=== PATIENT | male | born 1945 ===

== ENCOUNTER 2017-11-27 11:40 | Outpatient (CLI) | payer OTHER ==
[~2017-11-27] VITALS: Ht 167.6 cm; Wt 77.1 kg
== END 2017-11-27 12:00 | disposition home or self-care (01) ==
LOC: OFIC 805 11:40
DX: H61.23 Impacted cerumen, bilateral (principal); H90.3 Sensorineural hearing loss, bilateral

== ENCOUNTER 2017-12-22 11:04 | Outpatient (CLI) | payer OTHER ==
[~2017-12-22] VITALS: Ht 152.4 cm; Wt 77.1 kg
== END 2017-12-22 11:20 | disposition home or self-care (01) ==
LOC: OFIC 805 11:04
DX: H71.93 Unspecified cholesteatoma, bilateral (principal); H90.3 Sensorineural hearing loss, bilateral; H74.8X3 Other specified disorders of middle ear and mastoid, bilateral